=== PATIENT | male | born 1980 | race Hispanic/Latino ===

== ENCOUNTER 2017-12-17 21:26 | Emergency (ER) | payer OTHER ==
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
[2017-12-17] MEDS ORDERED: Adacel (T-DAP) 0.5 ML VIAL ONE (23:11)
[2017-12-17] MEDS ORDERED: Amoxicillin/Potassium Clav 875 MG TAB ONE (23:11)
== END 2017-12-17 23:48 | disposition home or self-care (01) ==
LOC: MADERS 21:26
DX: S02.82XA Fracture of other specified skull and facial bones, left side, initial encounter for closed fracture (principal); Y04.2XXA Assault by strike against or bumped into by another person, initial encounter
CPT/HCPCS: 70450; 70486; 72125; 90471; 90715